=== PATIENT | male | born 1985 | race African-American/Black ===

== ENCOUNTER → 2017-09-06 | Outpatient (CLI) | payer OTHER ==
[2014-01-06 17:17] VITALS: BP 142/78
[2017-09-06 08:31] LABS: BASOPHILS % (AUTO) 0.7 % (0.2-1.0); BLOOD UREA NITROGEN 16 mg/dL (7-18); CALCIUM 8.9 mg/dL (8.5-10.1); CARBON DIOXIDE 28.4 mmol/L (21-32); CHLORIDE 102 mmol/L (98-107); CREATININE 1.16 mg/dL (0.70-1.30); EOSINOPHILS # (AUTO) 0.1 x10^3/uL (0.0-0.2); EOSINOPHILS % (AUTO) 2.4 % (0.9-2.9); HEMATOCRIT 41.7 % (42.0-54.0); HEMOGLOBIN 14.5 g/dL (13.5-18.0); LYMPHOCYTES # (AUTO) 2.6 X10^3/uL (1.3-2.9); LYMPHOCYTES % (AUTO) 42.3 % (21.0-51.0); MEAN CORPUSCULAR HEMOGLOBIN 31.8 pg (27.0-34.0); MEAN CORPUSCULAR HGB CONC 34.7 g/dL (33.0-35.0); MEAN CORPUSCULAR VOLUME 91.8 fL (80.0-100.0); MEAN PLATELET VOLUME 9.4 fL (7.4-11.0); MONOCYTES # (AUTO) 0.5 x10^3/uL (0.3-0.8); MONOCYTES % (AUTO) 7.4 % (0.0-13.0); NEUTROPHILS # (AUTO) 2.9 x10^3/uL (2.2-4.8); NEUTROPHILS % (AUTO) 47.2 % (42.0-75.0); PLATELET COUNT 222 X10^3/uL (150.0-450.0); RED BLOOD COUNT 4.54 X10^6/uL (4.7-6.0); RED CELL DISTRIBUTION WIDTH 13.4 % (11.6-16.5); SODIUM 139 mmol/L (136-145); WHITE BLOOD COUNT 6.1 X10^3/uL (3.6-10.0); eGFR BLACK RACES > 60 (>60); eGFR NON BLACK RACES > 60 (>60)
--- NOTE | 2017-09-06 11:12 | US ---
HISTORY: Right upper quadrant abdominal pain Study: Right upper quadrant abdominal ultrasound Comparison: None Technique: Multiple images of the right upper quadrant were obtained. Findings: The liver measures 15.6 cm. Increased echogenicity throughout the liver suggests fatty infiltration. Correlate clinically as other causes of hepatic disease may produce a similar appearance. An approxim ate 1.9 x 2.8 cm hypoechoic focus seen within the liver may reflect focal fatty sparing however under lying lesion cannot be excluded. Follow-up multi-phase CT and/or MRI may be performed for further ronald luation.. The right kidney measures 11.9 x 4.9 x 6.6 cm. No sonographic evidence of hydronephrosis is identified. No shadowing echogenic stones are noted within the gallbladder. Gallbladder wall thickne ss is at the upper limits of normal measuring 3.0 mm. The common bile duct is within normal limits in caliber measuring 3.8 mm. The pancreas was incompletely visualized. IMPRESSION: Sonographic findings of hepatic steatosis. Questionable hepatic lesion as noted above. Reported By:
== END ==
LOC: LAB 07:49
PROVIDERS: ATTEND Internal Medicine
DX: R10.11 Right upper quadrant pain (principal)
CPT/HCPCS: 36415; 76705; 80048; 85025

== ENCOUNTER 2017-10-10 00:46 | Emergency (ER) | payer OTHER ==
[2017-10-10 00:57] VITALS: BP 126/75; BMI 34.3
--- NOTE | 2017-10-10 01:09 | DR.GENAD ---
HPI - PCP Primary Care Physician: DR. VIN BRUNNER - HPI Comment HPI Comment: SYMTOMS STARTED 5 DAYS AGO. SEEN BY PCP, PENDING CARDIOLOGY CONSULT. PATIENT SAID SYNPTOMS ARE WORSE TODAY. - Complaint/Symptoms Chief Complaint Doctors Comments: CHEST PAIN RADIATING TO LEFT ARM AND NUMBNESS ON LEFT SIDE OF BODY, UPPER WORSE CRISTOFER LOWER. Chief Complaint:: PAIN IN CHEST, LEFT ARM BEEN TINGLING, FEEL LIKE THERE IS A KNOT IN HIS THROAT. BEEN FEELING DIZZINESS. 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 , SOMEBODY FROM [facility] - Nurses notes reviewed Nurses Notes Review: Yes - Source History Provided: Patient - Mode of Arrival Mode of Arrival: Ambulatory - Timing Onset of Chief Complaint: 10/05/17 Came on: Suddenly - Duration Duration: Constant Duration: Days - Severity Severity: Moderate PMH - PMH Past Medical History: Yes Past Medical History: Migraines Past Surgical History: No - Family History History of Family Medical Conditions: Yes Family Medical History: Diabetes Mellitus, [place], Hypertension - Social History Does patient currently use any type of tobacco product: No Have you used tobacco products in the last 12 months: No Type of Tobacco Use: Cigarettes Alcohol Use: None Do you use any recreational Drugs:: No Lives With: Alone Lives Where: Home - infectious screening In the last 2 months have you had wt loss of >10#?: NO Have you had fever, night sweats or hemotysis?: No Have you traveled outside the country in the last 6 months?: No Isolation: Standard ROS - Review of Systems Constitutional: No Symptoms Reported, Weakness, Fatigue Eyes: No Symptoms Reported. negative: Eye Pain, Discharge ENTM: No Symptoms Reported. negative: Ear Pain, Nose Discharge, Nose Congestion , Throat Pain Respiratoy: Short of Breath. negative: Productive Cough, Wheezing, Hemoptysis Cardiovascular: Chest Pain. negative: Edema, Syncope Gastrointestinal/Abdominal: No Symptoms Reported. negative: Abdominal Pain, Diarrhea, Nausea, Vomiting Genitourinary: No Symptoms Reported. negative: Dysuria, Frequency, Hematuria Neurological: Weakness. negative: Headache, Dizziness Musculoskeletal: Left, Arm (NUMBNESS), Leg (NUMBNESS.) Integumentary: No Symptoms Reported Hematologic/Lymphatic: No Symptoms Reported Endocrine: No Symptoms Reported All Other Systems: Reviewed and Negative PE - Vital Signs Vitals: Temperature 97.7 F Pulse Rate 77 Respiratory Rate 16 Blood Pressure 126/75 O2 Sat by Pulse Oximetry 97 - General Limitations: No Limitations General Appearance: Alert - Head Head Exam: Normal Inspection - Eyes Eye exam: Normal Appearance - ENT ENT Exam: Normal External Ear Exam External Ear Exam: Normal External Inspection TM/Canal Exam: Bilateral Normal Mouth Exam: Normal Inspection Throat Exam: Normal Inspection - Neck Neck Exam: Trachea Midline - Chest Chest Inspection: Symmetric Chest Wall Rise - Respiratory Respiratory Exam: Normal Lung Sounds Bilat Respiratory Exam: Bilateral Clear to Auscultation - Cardiovascular Cardiovascular Exam: Regular Rate, Normal Rhythm, Normal Heart Sounds - Abdominal Exam Abdominal Exam: Normal Bowel Sounds, Soft. negative: Tenderness - Extremities Extremities Exam: Normal Inspection, Other (PULSES INTACT.) - Back Back Exam: Normal Inspection - Neurologic Neurological Exam: Alert, Oriented X3. negative: CN II-XII Intact - Psychiatric Psychiatric Exam: Anxious - Skin Skin Exam: Normal Color Course - Treatment Treatment: SEE ORDERS. - Education/Counseling Education/Counseling: Patient, Education Educated On: Diagnosis, Needs for Follow Up ROR - Labs Reviewed Laboratory Results Reviewed?: Yes Result Diagrams: 10/10/17 01:28 10/10/17 01:28 Laboratory: WBC 5.2 X10^3/uL (3.6-10.0) 10/10/17 01:28 RBC 4.37 X10^6/uL (4.7-6.0) L 10/10/17 01:28 Hgb 13.8 g/dL (13.5-18.0) 10/10/17 01:28 Hct 39.5 % (42.0-54.0) L 10/10/17 01:28 MCV 90.5 fL (80.0-100.0) 10/10/17 01:28 MCH 31.5 pg (27.0-34.0) 10/10/17 01:28 MCHC 34.8 g/dL (33.0-35.0) 10/10/17 01:28 RDW 13.1 % (11.6-16.5) 10/10/17 01:28 Plt Count 236 X10^3/uL (150.0-450.0) 10/10/17 01:28 MPV 8.7 fL (7.4-11.0) 10/10/17 01:28 Neut % (Auto) 41.7 % (42.0-75.0) L 10/10/17 01: Lymph % (Auto) 48.2 % (21.0-51.0) 10/10/17 01:28 Day % (Auto) 7.7 % (0.0-13.0) 10/10/17 01: Eos % (Auto) 1.6 % (0.9-2.9) 10/10/17 01: Baso % (Auto) 0.8 % (0.2-1.0) 10/10/17 01: Neut # (Auto) 2.2 x10^3/uL (2.2-4.8) 10/10/17 01: Lymph # (Auto) 2.5 X10^3/uL (1.3-2.9) 10/10/17 01: Day # (Auto) 0.4 x10^3/uL (0.3-0.8) 10/10/17 01: Eos # (Auto) 0.1 x10^3/uL (0.0-0.2) 10/10/17 01: Baso # (Auto) 0.0 X10^3/uL (0.0-0.1) 10/10/17 01: Absolute Nucleated RBC 0.0 /100WBC 10/10/17 01:28 D-Dimer < 100 ng/mL (0-400) 10/10/17 01:28 Sodium 142 mmol/L (136-145) 10/10/17 01:28 Corrected Sodium TNP 10/10/17 01:28 Potassium 3.7 mmol/L (3.5-5.1) 10/10/17 01:28 Chloride 105 mmol/L (98-107) 10/10/17 01:28 Carbon Dioxide 26.4 mmol/L (21-32) 10/10/17 01:28 BUN 12 mg/dL (7-18) 10/10/17 01:28 Creatinine 1.00 mg/dL (0.70-1.30) 10/10/17 01:28 Est GFR (MDRD) Af Amer > 60 (>60) 10/10/17 01:28 Est GFR (MDRD) Non-Af > 60 (>60) 10/10/17 01:28 Glucose 98 mg/dL (65-99) 10/10/17 01:28 Calcium 8.5 mg/dL (8.5-10.1) 10/10/17 01:28 Corrected Calcium TNP 10/10/17 01:28 Total Bilirubin 0.30 mg/dL (0.2-1.0) 10/10/17 01:28 AST 19 Units/L (15-37) 10/10/17 01:28 ALT 30 Units/L (12-78) 10/10/17 01:28 Alkaline Phosphatase 54 Units/L (46-116) 10/10/17 01:28 Creatine Kinase 217 Units/L (39-308) 10/10/17 01:28 CK-MB (CK-2) 2.0 ng/mL (0-4.0) 10/10/17 01:28 CK/CKMB % Calc 0.9 % (<4) 10/10/17 01:28 Troponin I < 0.02 ng/mL (0-1.5) 10/10/17 01:28 Total Protein 7.6 g/dL (6.4-8.2) 10/10/17 01:28 Albumin 3.7 g/dL (3.4-5.0) 10/10/17 01:28 Globulin 3.9 g/dL (2.5-4.5) 10/10/17 01:28 Albumin/Globulin Ratio 0.9 Ratio (1.1-2.1) L 10/10/17 01:28 Triglycerides 72 mg/dL (0-150) 10/10/17 01:28 Cholesterol 173 mg/dL (0-200) 10/10/17 01:28 LDL Cholesterol, Calc 110 mg/dL (0-100) H 10/10/17 01:28 HDL Cholesterol 49 mg/dL (40-60) 10/10/17 01:28 Cholesterol/HDL Ratio 3.5 (0.0-5.0) 10/10/17 01:28 H. pylori IgG Antibody Positive (NEGATIVE) A 10/10/17 01:28 - XRAY XRAY Interpreted by: Radiologist XRAY Findings: REPORT DISCUSS WITH PATIENT. - EKG Rhythm: NSR (EKG NOTED) - Diagnosis Discharge Problem: Helicobacter pylori ab+ Chest pain Qualifiers: Chest pain type: precordial pain Qualified Code(s): R07.2 - Precordial pain - Discharge Plan Condition: Stable - Follow ups/Referrals Follow ups/Referrals: [facility],None [Primary Care Provider] - 10/11/17 - Instructions Instructions: Helicobacter Pylori Antibodies Test, Chest Pain Observation Additional Instructions: RETURN TO ED IF WORSE. HAVE PCP TREAT YOU FOR POSITIVE H PYLORI.
[2017-10-10] MEDS ORDERED: PEPCID 20 MG IV PREMIX* 20 MG/50 ML BAG IV ONE (01:22)
[2017-10-10] MEDS ORDERED: ASPIRIN 81 MG CHEWTAB PO ONE (01:23)
[2017-10-10 01:36] LABS: BASOPHILS % (AUTO) 0.8 % (0.2-1.0); EOSINOPHILS # (AUTO) 0.1 x10^3/uL (0.0-0.2); EOSINOPHILS % (AUTO) 1.6 % (0.9-2.9); HEMATOCRIT 39.5 % (42.0-54.0); HEMOGLOBIN 13.8 g/dL (13.5-18.0); LYMPHOCYTES # (AUTO) 2.5 X10^3/uL (1.3-2.9); LYMPHOCYTES % (AUTO) 48.2 % (21.0-51.0); MEAN CORPUSCULAR HEMOGLOBIN 31.5 pg (27.0-34.0); MEAN CORPUSCULAR HGB CONC 34.8 g/dL (33.0-35.0); MEAN CORPUSCULAR VOLUME 90.5 fL (80.0-100.0); MEAN PLATELET VOLUME 8.7 fL (7.4-11.0); MONOCYTES # (AUTO) 0.4 x10^3/uL (0.3-0.8); MONOCYTES % (AUTO) 7.7 % (0.0-13.0); NEUTROPHILS # (AUTO) 2.2 x10^3/uL (2.2-4.8); NEUTROPHILS % (AUTO) 41.7 % (42.0-75.0); PLATELET COUNT 236 X10^3/uL (150.0-450.0); RED BLOOD COUNT 4.37 X10^6/uL (4.7-6.0); RED CELL DISTRIBUTION WIDTH 13.1 % (11.6-16.5); WHITE BLOOD COUNT 5.2 X10^3/uL (3.6-10.0)
--- NOTE | 2017-10-10 01:50 | RAD ---
AP Chest Indication: Chest pain Comparison: None available Findings: The trachea is midline. The cardiac silhouette is unremarkable. The lungs are clear without focal i nfiltrate or effusion. The bony thorax is unremarkable. IMPRESSION: 1. No acute cardiopulmonary abnormality. Reported By:
--- NOTE | 2017-10-10 01:51 | CT ---
CT brain without contrast Indication: Tingling in left arm Comparison: None available Technique: Multiple axial images of the brain were obtained from the skull base to the vertex without administra tion of IV contrast. Findings: No acute intraparenchymal hemorrhage or mass can be identified. No extra-axial fluid collections are seen. No alteration in the attenuation of the brain parenchyma can be identified to suggest acute o r subacute ischemic change. The ventricular system is symmetric and nondilated. The extracranial st ructures are grossly unremarkable. IMPRESSION: 1. No acute intracranial process is identified. Reported By:
[2017-10-10 01:54] LABS: BLOOD UREA NITROGEN 12 mg/dL (7-18); CALCIUM 8.5 mg/dL (8.5-10.1); CARBON DIOXIDE 26.4 mmol/L (21-32); CHLORIDE 105 mmol/L (98-107); SODIUM 142 mmol/L (136-145); TROPONIN I < 0.02 ng/mL (0-1.5); eGFR BLACK RACES > 60 (>60); eGFR NON BLACK RACES > 60 (>60)
[2017-10-10 01:59] LABS: CHOL/HDL RATIO 3.5 (0.0-5.0)
[2017-10-10 02:09] LABS: ALANINE AMINOTRANSFERASE 30 Units/L (12-78); ALBUMIN 3.7 g/dL (3.4-5.0); ALKALINE PHOSPHATASE 54 Units/L (46-116); ASPARTATE AMINO TRANSFERASE 19 Units/L (15-37); CKMB % 0.9 % (<4); CREATINE KINASE 217 Units/L (39-308); TOTAL PROTEIN 7.6 g/dL (6.4-8.2)
[2017-10-10] MEDS ORDERED: PEPCID TAB 20 MG ONE (03:59)
[2017-10-10] MEDS ORDERED: PEPCID TAB 20 MG PO ONE (04:02)
== END 2017-10-10 04:05 | disposition home or self-care (01) ==
LOC: ER 00:46
DX: R07.89 Other chest pain (principal); B96.81 Helicobacter pylori [H. pylori] as the cause of diseases classified elsewhere
CPT/HCPCS: 36415; 70450; 71045; 80053; 80061; 82550; 82553; 84484; 85025; 85378; 86677; 93005; 93010; 99283